=== PATIENT | male | born 1975 | race Caucasian/White ===

== ENCOUNTER 2017-01-23 11:16 | Emergency (ER) | payer MEDICAID ==
--- NOTE | 2017-01-23 11:31 | ED Physician Chart ---
Chief Complaint/HPI - Patient Information Date Seen:: 01/23/17 Time Seen:: 11:22 Chief Complaint:: Rectal pain for 3 days. History of Present Illness:: Brought in by private auto for the above reason. Pt is primarily Serbian speaking. Interpretation is provided by his daughter Margaret per pt's request. Pt has noticed a "boil" in perianal region that has started to drain yesterday, and his rectal pain has improved. No fever. Taking po well without N/V/D. Last BM yesterday morning. Normal in color/consistency. No hematochezia or melena. Allergies:: Allergies Allergy/AdvReac Type Severity Reaction Status Date / Time No Known Allergies Allergy Verified 01/23/17 11:25 Vitals:: see Nurse Note. Historian:: Patient Family MD/PCP:: Dr. Martinez LMP:: N/A Review:: Nurse's Note Reviewed Review of Systems - Review of Systems General/Constitutional: No fever, No chills, No weight loss, No weakness, No diaphoresis, No edema, No loss of appetite Skin: No rash, No bruising, Other ( perianal lesion by hx.) Head: No headache, No light-headedness Eyes: No loss of vision, No pain, No diplopia ENT: No earache, No nasal drainage, No sore throat, No tinnitus Neck: No neck pain, No swelling, No thyromegaly, No stiffness, No mass noted Cardio Vascular: No chest pain, No palpitations, No PND, No orthopnea, No edema Pulmonary: No SOB, No cough, No wheezing GI: No nausea, No vomiting, No diarrhea, No pain, No melena, No hematochezia, No constipation, No hematemesis, Other (perianal lesion, see HPI.) G/U: No dysuria, No frequency, No hematuria Musculoskeletal: No bone or joint pain, No back pain, No muscle pain Endocrine: No polyuria, No polydipsia Psychiatric: No prior psych history Hematopoietic: No bruising, No lymphadenopathy Allergic/Immuno: No urticaria, No angioedema Neurological: No syncope, No focal symptoms, No weakness, No paresthesia, No headache, No dizziness, No confusion Past Medical History - Past Medical History Past Medical History: No significant medical hx Family History: Heart disease (father) Social History: Non Smoker, No Alcohol, No Drug Use, , Employed, Other ( lives with his and his children.) Employment:: [employer] Surgical History: other (R thumb surgery about 18 y/a.) Psychiatricy History: None Medication: None Family Medical History - Family Member Mother History Unknown: Yes Physical Exam - Physical Examination General/Constitutional: Awake, Well-developed, well-nourished, Alert, No distress, GCS 15, Non-toxic appearing, Ambulatory Other Gen/Cons comments:: Breathes comfortably, speaks clearly, interacts normally, and ambulates without difficulty. Head: Atraumatic Eyes: Lids, conjuctiva normal, PERRL, EOMI Other Eyes comments:: anicteric sclera. Skin: Nl inspection, No rash, No skin lesions, No ecchymosis, Well hydrated, No lymphadenopathy ENMT: External ears, nose nl, Nasal exam nl, Oropharynx nl Neck: Nontender, Full ROM w/o pain, No nuchal rigidity, No mass, No stridor Respiratory: Nl effort/Exclusion, Clear to Auscultation, No Wheeze/Rhonchi/Rales Cardio Vascular: RRR, No murmur, gallop, rubs GI: No tenderness/rebounding/guarding, No organomegaly, No hernia, Normal BS's, Nondistended, No mass/bruits Other GI comments:: Abdomen is soft. Rectal exam reveals a mildly erythematous 1 x 0.5 indurated lesion at L perianal region. No exudate noticed. No open wound. No fluctulance. Extremities: No edema Neuro/Psych: Alert/oriented (oriented x 3), Judgement/insight normal, Mood normal, Normal gait, No focal deficits ED Septic Shock - . Is Septic Shock (SBP<90, OR Lactate>4 mmol\\L) present?: No Reassessment (Disposition) - Reassessment Reassessment:: 1210 Pt feels better. Pt requests to go home now and does not want further observation/management in hospital. Aftercare instructions have been given. Interpretation by his daughter Margaret. Reassessment Condition:: Improved - Diagnosis Diagnosis:: Early perianal abscess, stable. - Aftercare/Follow up Instructions Aftercare/Follow-Up Instructions:: Refer to Discharge Instructions Notes:: Warm compress to be applied to affected area in perianal region for 15 minutes q1-2h. May take Motrin 200 mg tab 3 to 4 tabs po q8h prn pain, not to take first dose at least 6 hours after Toradol was given here. May also take Tylenol 500 mg tab one tab po q6h prn pain. F/U with PCP Dr. Martinez in one day for recheck and consideration for surgical referral for drainage. Return to ER immediately if condition worsens or if any further questions/problems. Medication Prescribed:: Bactrim DS one tab po q12h for 10 days. D-20 R-0 - Patient Disposition Discharge/Transfer:: Home Time:: 12:00 Condition at Disposition:: Stable, Improved ED Discharge Plan - Patient Disposition Prescriptions: Sulfamethoxazole/TMP [Bactrim DS] 1 tab PO Q12HR 10 Days Instructions: Abscess Accepting Physician: Tito Martinez [Other] - 1-3 Days
== END 2017-01-23 12:15 | disposition home or self-care (01) ==
LOC: ER 11:16
DX: K61.0 Anal abscess (principal)
CPT/HCPCS: 99283; 96372; J1885; Z7502